=== PATIENT | female | born 1975 | race Caucasian/White ===

== ENCOUNTER 2024-01-10 15:58 | Emergency (ER) | payer OTHER, SELFPAY ==
--- NOTE | 2024-01-10 16:06 | ED.URI ---
HPI - URI/Sore Throat General Chief Complaint: Upper Respiratory Infection Stated Complaint: sore throat Time Seen by Provider: 01/10/24 16:01 Source: patient Mode of arrival: ambulatory Limitations: no limitations History of Present Illness HPI Narrative: Ruthy is a 48-year-old female patient presenting to the clinic today with complaints of sore throat x3 days. She reports no runny nose, cough, fever, chills, or body aches. States that she has had strep exposure by student at school. MD elicited complaint: sore throat and nasal congestion Related Data Home Medications Medication Instructions Recorded Confirmed oxybutynin chloride 10 mg 10 mg PO DAILY 01/10/24 01/10/24 tablet,extended release 24 hr Allergies Allergy/AdvReac Type Severity Reaction Status Date / Time Penicillins Allergy Mild Rash Verified 01/10/24 16:01 Review of Systems Review of Systems: Pertinent positives per HPI. Patient denies any fever, chills, rash, headache, visual changes, dizziness, cough, shortness of breath, chest pain, palpitations, nausea, vomiting, diarrhea, constipation, abdominal pain, or any urinary issues. [facility] Past Medical History Medical History Abnormal Pap smear of cervix hx of abnormal cells at previous doctor office Gestational hypertension Screening mammogram, encounter for Surgical History Surgical History History of 04/26/07 primary c/s--gestational hypertension, presumed macrosomia 02/03/13 rpt c/s w/ tubal ligation History of cholecystectomy (~08/2004) History of dilation and curettage 01/28/17 hscope d&c--menometrorrhagia, Dysmenorrhea, Endometrial Hypertrophy, uterine fibroids- benign 02/03/18 hscope D&C/Novasure Ablation; menometrorrhagia; dysmenorrhea History of endometrial ablation (02/03/18) hscope D&C/Novasure Ablation; menometrorrhagia; dysmenorrhea History of tonsillectomy (~1992) History of tubal ligation (02/03/13) History of wisdom tooth extraction (~03/2002) Family History Family History Grandparent Malignant tumor of urinary bladder maternal grandfather Father Malignant neoplasm of liver Social History Social History Smoking status: Never smoker Second hand tobacco smoke exposure: No Alcohol intake: never Substance use: never Substance use type: does not use Do You Feel Safe in your Home?: Yes Lack of Transportation: No Lack of Food: Never True Current Housing: I Have Housing Concerned About Future Housing: No Difficulty Paying Gas/Electric Bills: No Difficulty Paying for Meds: No Currently Unemployed: No Education: Associate Degree Difficulty w/ Childcare or Family Care: No Living arrangements: with family Additional living arrangements comments: Occupation/Education: occupation 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 There is no relevant family history pertinent to the patient complaint. Exam Narrative: General: Well-developed, morbidly obese, in no apparent distress Head: Normocephalic, atraumatic Eyes: Pupils equally round and reactive to light bilaterally, EOM intact, sclera and conjunctive clear, no discharge, lids normal Ears: TMs intact and clear, ear canals clear, no drainage, grossly hearing normal. Nose: Nares patent, no discharge, no inflammation, no sinus tenderness. Mouth: Oral pharynx mild red without lesions or masses, good dentition, MMM. Neck: Supple, trachea midline, no enlargemen
[2024-01-10 16:14] VITALS: BP 151/94; PULSE 86; RESP 18; TEMP 36.3; O2SAT 98
[2024-01-10 16:23] LABS: EDSTREPNEGPOS1 Negative (Negative)
== END 2024-01-10 16:34 | disposition home or self-care (01) ==
PROVIDERS: Emergency Provider Nurse Practitioner Family; PCP Nurse Practitioner
DX: J02.0 Streptococcal pharyngitis (principal)
CPT/HCPCS: 87081; 87880; 99213; G0463

== ENCOUNTER 2024-05-10 11:56 | Emergency (ER) | payer OTHER, SELFPAY ==
--- NOTE | 2024-05-10 11:59 | ED.URI ---
HPI - URI/Sore Throat General Chief Complaint: Upper Respiratory Infection Stated Complaint: sore throat Time Seen by Provider: 05/10/24 12:23 Source: patient and RN notes reviewed Mode of arrival: ambulatory Limitations: no limitations History of Present Illness HPI Narrative: 48-year-old female presents with concern for sore throat for several days. She denies fever, aches, chills, sweats. Reports 1 incidence of headache. Denies nasal congestion or rhinorrhea. Denies cough. MD elicited complaint: sore throat Related Data Allergies Allergy/AdvReac Type Severity Reaction Status Date / Time Penicillins Allergy Mild Rash Verified 05/10/24 11:59 Review of Systems Review of Systems: CONSTITUTIONAL: Denies malaise, chills, sweats, or fever. EYES: Denies visual changes, redness, or discharge. ENT: Reports rhinorrhea, congestion, sinus pain, otalgia. Reports sore throat. CARDIOVASCULAR: Denies chest pain, palpitations, or edema. RESPIRATORY: Denies cough. Denies dyspnea. GASTROINTESTINAL: Denies abdominal pain, nausea, vomiting, diarrhea SKIN: Denies rash or itching. MUSCULOSKELETAL: Denies myalgia. NEUROLOGIC: Reports headache. All systems reviewed & are unremarkable except as noted in HPI and below PMFSH Past Medical History Medical History Abnormal Pap smear of cervix hx of abnormal cells at previous doctor office Gestational hypertension Screening mammogram, encounter for Surgical History Surgical History History of 04/26/07 primary c/s--gestational hypertension, presumed macrosomia 02/03/13 rpt c/s w/ tubal ligation History of cholecystectomy (~08/2004) History of dilation and curettage 01/28/17 hscope d&c--menometrorrhagia, Dysmenorrhea, Endometrial Hypertrophy, uterine fibroids- benign 02/03/18 hscope D&C/Novasure Ablation; menometrorrhagia; dysmenorrhea History of endometrial ablation (02/03/18) hscope D&C/Novasure Ablation; menometrorrhagia; dysmenorrhea History of tonsillectomy (~1992) History of tubal ligation (02/03/13) History of wisdom tooth extraction (~03/2002) Family History Family History Grandparent Malignant tumor of urinary bladder maternal grandfather Father Malignant neoplasm of liver Social History Social History Smoking status: Never smoker Second hand tobacco smoke exposure: No Alcohol intake: never Substance use: never Substance use type: does not use Do You Feel Safe in your Home?: Yes Lack of Transportation: No Lack of Food: Never True Current Housing: I Have Housing Concerned About Future Housing: No Difficulty Paying Gas/Electric Bills: No Difficulty Paying for Meds: No Currently Unemployed: No Education: Associate Degree Difficulty w/ Childcare or Family Care: No Living arrangements: with family Additional living arrangements comments: Occupation/Education: occupation 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 There is no relevant family history pertinent to the presenting complaint Exam Narrative: GENERAL: Well-appearing, well-nourished, and in no acute distress. HEAD: Normocephalic EYES: PERRLA, conjunctivae clear ENT: Nares clear. Mucous membranes moist. TM pearly barnes with dull light reflex bilaterally; no tragal tenderness. Oropharynx erythematous without lesions. Tonsils not present, no drooling, no hoarseness, no trismus, uvula midline. NECK: Supple. No lymphadenopathy CHEST: Clear to auscultation, breath sounds equal. No wheezing, rhonchi, rales, or stridor. No respiratory distress, speaks in full sentences. HEART: Regular rate and rhythm. No murmur heard. SKIN: Warm, dry, no rash. NEURO: Alert and oriented x3. PSYCH: Normal mood and affect Course Course Emergency Course: Patient is aware of diagnosis, understands and agrees to treatment plan. Anticipatory guidance given. Patient agrees to follow-up as directed and is aware of reasons to seek care at the emergency department. Portions of this record may have been created with voice recognition software Level of Care: Express Care Visit Vital Signs Vital signs: Reviewed. MDM - URI/Sore Throat MDM Narrative Medical decision making narrative: Differential diagnosis considered: Padgett virus, strep pharyngitis, allergic rhinitis, upper respiratory tract infection, sinusitis, rhinosinusitis, nasopharyngitis. viral pharyngitis, otitis media, otitis externa, pneumonia, bronchitis, viral cough syndrome, viral syndrome, and influenza. Exam findings show no acute concerns or changes; patient is non-toxic appearing and is in no distress. Patient is appropriate for outpatient treatment and follow-up. Lab Data Attestation: I reviewed the patient's lab results. Critical Care Time Critical Care Time Critical Care Time: No Discharge Plan Discharge Clinical Impression: Acute streptococcal pharyngitis Patient Disposition: Home, Self-Care Condition: Stable Instructions: Antibiotic Form, Strep Throat (ED) Additional Instructions: -Take the medication as prescribed. Throw away the toothbrush after 24hours of antibiotic. -Eat and drink things that are easy to swallow, like tea or soup, or popsicles to suck on. -Oral rinses such as: Salt water gargles and/or may use topical anesthetic (eg. Chloraseptic spray) or lozenges to relieve dryness or throat pain). -Take Tylenol and ibuprofen as needed for pain and fever as directed. -Frequent hand washing or hand geospatial program management officer is one of the best ways to prevent spread of infection. -Follow up with primary care provider in 2-3 days if condition is not improving; or seek ER visit if you have trouble breathing, cannot drink enough fluids, have muffled voice, difficulty opening your mouth, or severe swelling. Patient Language: Andorran Prescriptions: New cefdinir 300 mg capsule 300 mg PO Q12H 10 Days Qty: 20 0RF Follow-up/Referrals: Gildardo,Mary Ann Rubio APRN [Primary Care Provider] - Stand Alone Forms: Work/School Release IP Time of Disposition: 12:32
[2024-05-10 12:08] VITALS: BP 133/98; PULSE 68; RESP 16; TEMP 35.8; O2SAT 98
== END 2024-05-10 12:35 | disposition home or self-care (01) ==
PROVIDERS: Emergency Provider Nurse Practitioner; PCP Nurse Practitioner
DX: J02.0 Streptococcal pharyngitis (principal)
CPT/HCPCS: 99213; G0463

== ENCOUNTER 2024-06-30 16:10 | Emergency (ER) | payer OTHER, SELFPAY ==
[2024-06-30 16:25] VITALS: BP 150/86; PULSE 73; RESP 16; TEMP 36; O2SAT 98
--- NOTE | 2024-06-30 16:35 | ED.URI ---
HPI - URI/Sore Throat General Chief Complaint: Upper Respiratory Infection Stated Complaint: sore throat Time Seen by Provider: 06/30/24 16:30 Source: patient Mode of arrival: ambulatory Limitations: no limitations History of Present Illness HPI Narrative: Ruthy is a 48-year-old female patient presenting to the clinic today with complaints of sore throat x1 week. She reports she has also got cough and sinus drainage. Denies any chest pain or shortness of breath. No known fever, chills, body aches. MD elicited complaint: sore throat and nasal congestion Related Data Home Medications ?Medication ?Instructions ?Recorded ?Confirmed ?Last Taken ?Type oxybutynin chloride 10 mg 10 mg PO DAILY 06/30/24 06/30/24 Unknown History tablet,extended release 24 hr Allergies Allergy/AdvReac Type Severity Reaction Status Date / Time Penicillins Allergy Mild Rash Verified 06/30/24 16:33 Review of Systems Review of Systems: Pertinent positives per HPI. Patient denies any fever, chills, rash, headache, visual changes, dizziness, shortness of breath, chest pain, palpitations, nausea, vomiting, diarrhea, constipation, abdominal pain, or any urinary issues. [facility] Past Medical History Medical History Abnormal Pap smear of cervix hx of abnormal cells at previous doctor office Gestational hypertension Screening mammogram, encounter for Surgical History Surgical History History of 04/26/07 primary c/s--gestational hypertension, presumed macrosomia 02/03/13 rpt c/s w/ tubal ligation History of cholecystectomy (~08/2004) History of dilation and curettage 01/28/17 hscope d&c--menometrorrhagia, Dysmenorrhea, Endometrial Hypertrophy, uterine fibroids- benign 02/03/18 hscope D&C/Novasure Ablation; menometrorrhagia; dysmenorrhea History of endometrial ablation (02/03/18) hscope D&C/Novasure Ablation; menometrorrhagia; dysmenorrhea History of tonsillectomy (~1992) History of tubal ligation (02/03/13) History of wisdom tooth extraction (~03/2002) Family History Family History Grandparent Malignant tumor of urinary bladder maternal grandfather Father Malignant neoplasm of liver Social History Social History Smoking status: Never smoker Second hand tobacco smoke exposure: No Alcohol intake: never Substance use: never Substance use type: does not use Do You Feel Safe in your Home?: Yes Lack of Transportation: No Lack of Food: Never True Current Housing: I Have Housing Concerned About Future Housing: No Difficulty Paying Gas/Electric Bills: No Difficulty Paying for Meds: No Currently Unemployed: No Education: Associate Degree Difficulty w/ Childcare or Family Care: No Living arrangements: with family Additional living arrangements comments: Occupation/Education: occupation 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 There is no relevant family history pertinent to the patient complaint. Exam Narrative: General: Well-developed, obese, in no apparent distress Head: Normocephalic, atraumatic Eyes: Pupils equally round and reactive to light bilaterally, EOM intact, sclera and conjunctive clear, no discharge, lids normal Ears: TMs intact and clear, ear canals clear, no drainage, grossly hearing normal. Nose: Nares patent, clear nasal discharge, no inflammation, no sinus tenderness. Mouth: Oral pharynx red without lesions or masses, good dentition, MMM. Postnasal drip Neck: Supple, trachea midline, no enlargement of anterior or posterior cervical nodes, no thyroid masses or goiter palpable. Cardio: Regular rate and rhythm, s1 and s2 normal, no murmur appreciated. Resp: Clear to auscultation bilaterally, no rhonchi, rales, wheezing or rubs Course Course Emergency Course: Portions of this record may have been created with voice recognition software. Level of Care: Express Care Visit Vital Signs Vital signs: Vital Signs Temperature 36.0 C L 06/30/24 16:25 Pulse Rate 73 06/30/24 16:25 Respiratory Rate 16 06/30/24 16:25 Blood Pressure 150/86 H 06/30/24 16:25 Pulse Oximetry 98 06/30/24 16:25 Oxygen Delivery Room Air 06/30/24 16:25 Temperature 36.0 C L 06/30/24 16:25 Pulse Rate 73 06/30/24 16:25 Respiratory Rate 16 06/30/24 16:25 Blood Pressure 150/86 H 06/30/24 16:25 Pulse Oximetry 98 06/30/24 16:25 Oxygen Delivery Room Air 06/30/24 16:25 Vital signs reviewed MDM - URI/Sore Throat MDM Narrative Medical decision making narrative: At the time of visit patient is resting comfortably on the exam table. Patient appears to be nontoxic. Labs: Strep test was negative in the clinic today. We will send strep for culture. Plan: I suspect patient has pharyngitis/URI. Prescription for prednisone was sent to the pharmacy. Supportive measures were discussed with the patient and they voiced understanding discharge instructions and agrees to treatment plan. Return precautions reviewed Differential Diagnosis Differential diagnosis: Likely upper respiratory infection, otitis media, sinusitis, viral infection, bronchitis, influenza, pharyngitis and other (COVID) Lab Data Labs: Lab Results 06/30/24 Range/Units 16:39 POC Grp A Strep Screen Negative (Negative) Discharge Plan Discharge Clinical Impression: URI (upper respiratory infection) Qualifiers: URI type: unspecified URI Qualified Code(s): J06.9 - Acute upper respiratory infection, unspecified Pharyngitis Qualifiers: Pharyngitis/tonsillitis etiology: unspecified etiology Qualified Code(s): J02.9 - Acute pharyngitis, unspecified Patient Disposition: Home, Self-Care Condition: Stable Instructions: Antibiotic Form, Pharyngitis (ED), Upper Respiratory Infection (ED) Additional Instructions: Strep test is negative in the clinic today. We will send strep for culture. Take prescription medications only as prescribed-prednisone Increase fluids and stay well hydrated Tylenol/motrin for pain/fever Flonase and OTC antihistamines as directed Vicks vapor rub to open sinuses Sinus rinses for congestion Cepacol spray, cough drops, throat lozenges, warm tea with honey/lemon, gargle salt water to soothe throat BRAT diet for diarrhea Clear liquids x 24 hours then advance as tolerated for nausea/vomiting Go to the ED if you develop a worsening in your condition- high fever not controlled by Tylenol or Motrin, dehydration, weakness, lethargy, shortness of breath, or chest pain. Follow up with your PCP in 3-5 days if symptoms persist. Patient Language: Mosotho Prescriptions: New prednisone 20 mg tablet 40 mg PO DAILY 5 Days Qty: 10 0RF No Action oxybutynin chloride 10 mg tablet extended release 24hr 10 mg PO DAILY Follow-up/Referrals: Gildardo,Mary Ann Rubio APRN [Primary Care Provider] - Time of Disposition: 16:37 Quality NIHSS Nursing Documentation ED NIHSS nursing documentation: reviewed/agree
[2024-06-30 16:42] LABS: EDSTREPNEGPOS1 Negative (Negative)
== END 2024-06-30 16:48 | disposition home or self-care (01) ==
PROVIDERS: Emergency Provider Nurse Practitioner Family; PCP Nurse Practitioner
DX: J06.9 Acute upper respiratory infection, unspecified (principal); J02.9 Acute pharyngitis, unspecified
CPT/HCPCS: 87081; 87880; 99213; G0463

== ENCOUNTER 2025-01-18 00:20 | Day surgery (SDC) | payer OTHER, SELFPAY ==
[2025-01-08 11:43] VITALS: BMI 58.2
[2025-01-18 06:45] VITALS: BP 108/84; PULSE 86; RESP 16; TEMP 36.2; O2SAT 96; BMI 57.6
[2025-01-18 07:03] LABS: BEDSIDEPREGUCG Negative (Negative)
[2025-01-18] MEDS: LACTATED RINGERS 1,000 ML 150 ML IV CONT (07:06)
--- NOTE | 2025-01-18 07:47 | WPDANESEPPF ---
Anes - Initial Pre Proc Eval Procedure: Operation Date: 01/18/25 08:00 Proposed Procedures p Screening Colonoscopy - Aguilar Santana MD Date/Time: 01/18/25 07:47 Surgeon: Aguilar Santana MD Pre Op Diagnosis: Screening Patient Data Age: 49 Gender: F Height: 1.65 m Weight: 157.1 kg Last Vital Signs Temp 97.1 F L 01/18/25 06:45 Pulse 86 01/18/25 06:45 Resp 16 01/18/25 06:45 BP 108/84 01/18/25 06:45 Pulse Ox 96 01/18/25 06:45 O2 Del Method Room Air 01/18/25 06:45 Allergies Allergy/AdvReac Type Severity Reaction Status Date / Time Penicillins Allergy Mild Rash Verified 01/18/25 06:52 Home Medications ?Medication ?Instructions ?Recorded ?Confirmed ?Type oxybutynin chloride 10 mg 10 mg PO DAILY 06/30/24 01/18/25 History tablet,extended release 24 hr Laboratory Tests 01/18/25 07:00 POC Urine HCG, Qual Negative (Negative) Patient hx anesthesia problems: none Family hx anesthesia problems: none Results Review: All pre-operative results and documents have been reviewed as part of the pre-operative evaluation. [facility] Past Medical History Medical History Screening mammogram, encounter for Gestational hypertension Abnormal Pap smear of cervix hx of abnormal cells at previous doctor office Surgical History Surgical History History of wisdom tooth extraction (~03/2002) History of endometrial ablation (02/03/18) hscope D&C/Novasure Ablation; menometrorrhagia; dysmenorrhea History of dilation and curettage 01/28/17 hscope d&c--menometrorrhagia, Dysmenorrhea, Endometrial Hypertrophy, uterine fibroids- benign 02/03/18 hscope D&C/Novasure Ablation; menometrorrhagia; dysmenorrhea History of tubal ligation (02/03/13) History of 04/26/07 primary c/s--gestational hypertension, presumed macrosomia 02/03/13 rpt c/s w/ tubal ligation History of cholecystectomy (~08/2004) History of tonsillectomy (~1992) Family History Family History Grandparent Malignant tumor of urinary bladder maternal grandfather Father Malignant neoplasm of liver Social History Social History Smoking status: Never smoker Second hand tobacco smoke exposure: No Alcohol intake: never Substance use: never Substance use type: does not use Do You Feel Safe in your Home?: Yes Lack of Transportation: No Lack of Food: Never True Current Housing: I Have Housing Concerned About Future Housing: No Difficulty Paying Gas/Electric Bills: No Difficulty Paying for Meds: No Currently Unemployed: No Education: Associate Degree Difficulty w/ Childcare or Family Care: No Living arrangements: with family Additional living arrangements comments: Occupation/Education: occupation 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 BMI 57, pt can walk 1-2 fos, no cp or sob. Informed Consent: The patient's anesthetic plan and its attendant risks and benefits were discussed with the patient/family/POA. Questions were solicited and answers provided to the satisfaction of the patient/family/POA.
--- NOTE | 2025-01-18 07:50 | PM.IMHP ---
H&P: HPI History of Present Illness Date/Time: 01/18/25 07:50 Chief Complaint: Screening colonoscopy Narrative: This is the patient's first colonoscopy. There are no GI symptoms and there is no family history of colorectal cancer. Review of Systems Review of Systems: All systems reviewed & are unremarkable except as noted in HPI and below [facility] Past Medical History Medical History Screening mammogram, encounter for Gestational hypertension Abnormal Pap smear of cervix hx of abnormal cells at previous doctor office Surgical History Surgical History History of wisdom tooth extraction (~03/2002) History of endometrial ablation (02/03/18) hscope D&C/Novasure Ablation; menometrorrhagia; dysmenorrhea History of dilation and curettage 01/28/17 hscope d&c--menometrorrhagia, Dysmenorrhea, Endometrial Hypertrophy, uterine fibroids- benign 02/03/18 hscope D&C/Novasure Ablation; menometrorrhagia; dysmenorrhea History of tubal ligation (02/03/13) History of 04/26/07 primary c/s--gestational hypertension, presumed macrosomia 02/03/13 rpt c/s w/ tubal ligation History of cholecystectomy (~08/2004) History of tonsillectomy (~1992) Family History Family History Grandparent Malignant tumor of urinary bladder maternal grandfather Father Malignant neoplasm of liver Social History Social History Smoking status: Never smoker Second hand tobacco smoke exposure: No Alcohol intake: never Substance use: never Substance use type: does not use Do You Feel Safe in your Home?: Yes Lack of Transportation: No Lack of Food: Never True Current Housing: I Have Housing Concerned About Future Housing: No Difficulty Paying Gas/Electric Bills: No Difficulty Paying for Meds: No Currently Unemployed: No Education: Associate Degree Difficulty w/ Childcare or Family Care: No Living arrangements: with family Additional living arrangements comments: Occupation/Education: occupation 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 Gender identity (if verbalized by the patient): Female Sexual Orientation (if Verbalized by the Patient): Straight or Heterosexual Spiritual care concerns: No Meds Home Medications and Allergies Home Medications ?Medication ?Instructions ?Recorded ?Confirmed ?Type oxybutynin chloride 10 mg 10 mg PO DAILY 06/30/24 01/18/25 History tablet,extended release 24 hr Allergies Allergy/AdvReac Type Severity Reaction Status Date / Time Penicillins Allergy Mild Rash Verified 01/18/25 06:52 Vital Signs Vital Signs - 24 hr 01/18/25 06:45 Temperature 97.1 F L Pulse Rate 86 Respiratory Rate 16 Blood Pressure 108/84 Pulse Oximetry 96 Oxygen Delivery Room Air Exam Const: General: cooperative and healthy appearing Resp: Effort & Inspection: normal respiratory effort and able to speak in complete sentences Auscultation: clear to auscultation bilaterally Cardio: Rate: regular rate Rhythm: regular rhythm GI: Inspection: normal to inspection GI Palp: No No hepatosplenomegaly present Auscultation: normal bowel sounds Rectal Exam: deferred Skin: General skin exam: normal color Psych: Appearance: grossly normal Mental Status: mental status grossly normal Assessment and Plan Assessment and plan (1) Encounter for screening colonoscopy: Code(s): Z12.11 - Encounter for screening for malignant neoplasm of colon Status: Acute Assessment and Plan: The patient is deemed a good candidate for the procedure. Consent signed. Will proceed.
[2025-01-18 08:21] VITALS: BP 113/76; PULSE 89; RESP 25; O2SAT 95
[2025-01-18 08:31] VITALS: BP 130/81; PULSE 77; RESP 21; O2SAT 95
[2025-01-18 08:41] VITALS: BP 149/98; PULSE 73; RESP 22; O2SAT 97
== END 2025-01-18 08:55 | disposition home or self-care (01) ==
PROVIDERS: Anesthesiology; PCP Nurse Practitioner; Referring Provider Nurse Practitioner; Visit Provider Internal Medicine Gastroenterology
PROC: 0DJD8ZZ Inspection of Lower Intestinal Tract, Via Natural or Artificial Opening Endoscopic (ICD-10-PCS; CPT 45378; principal; 2025-01-18 08:00)
DX: Z12.11 Encounter for screening for malignant neoplasm of colon (principal); K64.8 Other hemorrhoids; E66.01 Morbid (severe) obesity due to excess calories; Z68.43 Body mass index [BMI] 50.0-59.9, adult; Z98.890 Other specified postprocedural states; Z98.891 History of uterine scar from previous surgery; Z98.51 Tubal ligation status; Z90.49 Acquired absence of other specified parts of digestive tract; Z80.52 Family history of malignant neoplasm of bladder; Z80.0 Family history of malignant neoplasm of digestive organs
CPT/HCPCS: 45378; J2003; J2704; J7120